=== PATIENT | female | born 1940 | race Caucasian/White ===

== ENCOUNTER → 2017-10-03 18:42 | Outpatient (CLI) | payer MEDICARE ==
[~2017-10-03 18:42] MED LIST: ACTONEL150 MG PO; ASCORBIC ACID500 MG PO; BAYER CHEWABLE81 MG PO; CALTRATE 600 M600 M1 PO; DESERYL100 MG PO; ESTROGEL50 GM TP; GABAPENTIN100 MG PO; HYDROCODONE-APA1 TAB PO; LEVOXYL50 MCG PO; MECLIZINE HCL25 MG PO; MELATONIN10 M1 PO; MINERAL OIL25 ML PO; NEXIUM40 MG PO; PROMETRIUM200 MG PO; PROSCAR5 MG PO; VITAMIN D5000 UNIT PO; WELLBUTRIN XL150 M1 PO; ZANAFLEX4 MG PO; ZOLOFT100 MG PO
[2017-10-03 20:55] LABS: CHOL - HDL RATIO 2.2 ratio (2.3-4.1); LDL-HDL RATIO 1.2 ratio (1.5-3.5)
[2017-10-19 09:09] VITALS: BMI 18.9
== END | disposition home or self-care (01) ==
LOC: D.LABREF 18:42
PROVIDERS: Internal Medicine Cardiovascular Disease
DX: I10 Essential (primary) hypertension (principal)

== ENCOUNTER → 2017-10-17 12:18 | Outpatient (CLI) | payer MEDICARE, OTHER ==
--- NOTE | ~2017-10-17 | EC ---
PATIENT:MASHA HARMAN DATE OF SERVICE: 10/17/17 SEX: F MEDICAL RECORD: [id number] DATE OF : 40 LOCATION:[facility] AGE OF PATIENT: 77 ADMISSION DATE: 10/17/17 REFERRING PHYSICIAN: INTERPRETING PHYSICIAN: PAM MOHR MD ECHOCARDIOGRAM REPORT ECHO CHARGES 4 ECHO COMPLETE Date: 10/17 CLINICAL DIAGNOSIS: CP/MVP ECHOCARDIOGRAPHIC MEASUREMENTS (adult normal given) AC root (d.<3.7cm) 2.9 cm LV Septum d (<1.2 cm> 0.9 cm Valve Excursion 1.8 cm LV Septum (systole) 1.5 cm Left Atria (s.<4.0cm> 2.6 cm LVPW d(<1.2cm) 1.1 cm RV (d.<2.3cm) 2.2 cm LVPW (sytole) 1.6 cm LV diastole(<5.6CM) 4.5 cm MV E-F(>70mm/sec) cm LV systole 2.9 cm LVOT Diameter 1.7 cm MV exc.(>10mm) cm Est.ejection fraction (50-75%) % DOPPLER: LVIT cm/sec A 38.0 cm/sec E 47.0 cm/sec LA cm/sec RVSP 38.0 mmHg LVOT 80.0 cm/sec AOP1/2T m/s Asc. Ao 100 cm/sec RVOT 63.0 cm/sec RA cm/sec PA 71.0 cm/sec AV Gradient Peak 4.0 mmHg AV Mean 1.8 mmHg AV Area 1.8 cm MV Gradient Peak 2.8 mmHg MV Mean 0.98 mmHg MV Area cm COMMENTS: Veneer Stapler: 1 ALON SPA[employer] Architect: Katie Mohr TAPE# PACS Pericardial Effusion N DATE OF SERVICE: PROCEDURE: Echocardiogram. FINDINGS: 1. Left ventricle has evidence of mild left ventricular hypertrophy. Inflow characteristics are otherwise normal. Ejection fraction is 50% to 55%. 2. The left atrium is normal. 3. The aortic valve is normal. 4. The mitral valve has mild mitral valve regurgitation. ECHOCARDIOGRAM REPORT [id number] MASHA HARMAN 5. The tricuspid valve has moderate tricuspid regurgitation, RVSP of 38 mmHg. 6. The right ventricle is normal. 7. The right atrium is normal. 8. Pulmonic valve has trace pulmonic insufficiency. CONCLUSIONS: The patient has evidence of left ventricular hypertrophy, otherwise normal echocardiogram for stated age with the exception of mild elevation of the right ventricular systolic pressures. TRANSINT:[id number] Voice Confirmation ID: [id number] DOCUMENT ID: [id number] PAM MOHR MD at 0737 CC: [id number] DICTATION DATE: 10/19/17924 MANAGEMENT INFORMATION SYSTEMS DIRECTOR: 10/19/17 1124 [facility] CLI 10/17/17 [id number] [place] [address]
[2017-10-19 09:09] VITALS: BMI 18.9
== END | disposition home or self-care (01) ==
LOC: D.ECHO 12:18
DX: R07.9 Chest pain, unspecified (principal); I34.1 Nonrheumatic mitral (valve) prolapse; I70.213 Atherosclerosis of native arteries of extremities with intermittent claudication, bilateral legs

== ENCOUNTER 2017-10-19 08:26 | Outpatient (CLI) | payer MEDICARE, OTHER ==
[~2017-10-19] VITALS: Ht 162.6 cm; Wt 50.0 kg
--- NOTE | ~2017-10-19 | HEMODYNAMI ---
PATIENT:MASHA HARMAN MEDICAL RECORD: [id number] : 40 LOCATION:[facility] ADMISSION DATE: 10/19/17 Generatedon:10/19/201710:25 Patient name: MASHA HARMAN Patient #: [id number] SSN: : 1940 Date of study: 10/19/2017 Page: Of Hemodynamic Procedure Report Patient Data Patient Demographics Procedure consent was obtained First Name: MASHA Gender: Female Last Name: GHAZAL : 1940 Middle Initial: E Age: 77 year(s) Patient #: [id number] Race: Unknown Additional ID: [id number] Contact details Address: [address] [place] [address] State: [place] City: [place] Zip code: [address] Past Medical History Allergies: No known allergies Admission Admission Data Admission Date: 10/19/2017 Admission Time: 8:26 Admit Source: Other Lab Results Lab Result Date: 10/19/2017 Lab Result Time: 0:00 CBC Name Units Result Min Max Hematocrit % 32.4 *-(----)-- 42 54 Hemoglobin g/dl 11 *-(----)-- 13.5 17.5 Procedure Procedure Types Cath Procedure Diagnostic Procedure LHC LHC w/Coronaries Peripheral Cath Diagnostic Procedure Cath Peripheral Qtybi-Qewrpwy-Qzv-Off Abd/Extremity Renal Bilat Renal Arteriogram Procedure Description Procedure Date Procedure Date: 10/19/2017 Procedure Start Time: 10:13 Procedure End Time: 10:25 Procedure Staff Name Function Shaan Ponce MD Performing Physician Judd Byers RT Monitor Prashanth Georges RT Scrub Wilfredo Nolan RN Nurse Procedure Data Cath Procedure Fluoroscopy Diagnostic fluoroscopy Total fluoroscopy Time: 1.7 time: 1.7 min min Diagnostic fluoroscopy Total fluoroscopy dose: 201 dose: 201 mGy mGy Contrast Material Contrast Material Type Amount (ml) Isovue 300 72 Entry Location Entry Primary Successful Side Size Upsize Upsize Entry Closure Succes sful Closure Location (Fr) 1 (Fr) 2 (Fr) Remarks Device Remarks Femoral Right 5 Fr Exoseal artery Estimated blood loss: 5 ml Diagnostic catheters Device Type Used For End Catheter Placement MULTIPACK JL 4.0 5Fr Procedure catheter MULTIPACK 3DRC 5Fr Procedure catheter MULTIPACK Pigtail 5 Fr Procedure catheter Procedure Complications No complications Procedure Medications Medication Administration Route Dosage 0.9% NaCl I.V. 100 ml/hr Oxygen etCO2 Nasal cannula 2 l/min Heparin Flush Bag added to field 2 bags (1000units/500ml NS) Lidocaine 2% added to field 20 Versed I.V. 2 mg Fentanyl I.V. 50 mcg Hemodynamics Rest HGB: 11 (g/dl) Heart Rate: 79 (bpm) Pressure Samples Time Site Value (mmHg) Purpose Heart Use Rate(bpm) 10:20 LV 145/-11,17 EDP 81 Gradients Valve Time Site Site Mean SEP/DFP Peak To Heart Use 1 2 (mmHg) (sec/min) Peak Rate (mmHg) (bpm) Aortic 10:21 LV AO 83 Snapshots Pre Cath Intra NCS Post Cath Vital Signs Time Heart Resp SPO2 etCO2 NIBP (mmHg) Rhythm Pain Sedation Rate (ipm) (%) (mmHg) Status Level (bpm) 10:10:41 78 15 100 21 127/75(101) NSR 0 (11) 10(A) , No pain 10:15:24 79 17 97 0 118/69(93) NSR 0 (11) 9(A) , No pain 10:19:56 82 12 99 0 130/84(107) NSR 0 (11) 9(A) , No pain 10:24:30 81 12 98 0 136/81(112) NSR 0 (11) 9(A) , No pain Medications Time Medication Route Dose Verified Delivered Reason Notes Eff ectiveness by by 10:00:08 0.9% NaCl I.V. 100 Wilfredo Wilfredo Per ml/hr Ovidio Nolan physician RN RN 10:00:20 Oxygen etCO2 2 Wilfredo Wilfredo Per Nasal l/min Ovidio Nolan physician cannula RN RN 10:00:33 Heparin Flush added 2 Wilfredo Wilfredo used for Bag to bags Ovidio Nolan procedure (1000units/500ml field RN RN NS) 10:00:44 Lidocaine 2% added 20ml Wilfredo Wilfredo for local to vial Ovidio Nolan anesthetic field RN RN 10:08:59 Versed I.V. 2 mg Wilfredo Villalobos for Lorigan Cristyigan sedation RN RN 10:09:09 Fentanyl I.V. 50 Wilfredo Wilfredo for mcg Lorigan Lormark sedation RN ed educational aide Log Time Note 9:37:20 Informed consent obtained and on chart 9:37:24 Admit Source: Other 9:37:47 Diagnostic Cath status Elective 9:37:49 Prashanth José Manuel RT(R) sent for patient. Start room use. 9:37:50 Time tracking: Regular hours (M-F 7:00 - 5:00) 9:37:54 Plan of Care:Hemodynamics will remain stable., Cardiac rhythm will remain stable., Comfort level will be maintained., Respiratory function will remain adequate., Patient/ family verbilizes understanding of procedure., Procedure tolerated without complication., Recovers from procedure without complications.. 9:38:07 H&P Date Dictated: 10/03/2017 Within 30 days and on chart., H&P Addendum completed by physician on day of procedure. (MUST COMPLETE FOR ALL OUTPATIENTS). 9:41:57 Lab Result : Hemoglobin 11 g/dl 9:41:58 Lab Result : Hematocrit 32.4 % 9:48:31 Patient received from Pre/Post Procedure Room to CCL 1 Alert and oriented. Tansferred to table in Supine position. 9:48:32 Warm blankets applied, and james hugger turned on for patient comfort. 9:48:32 Correct patient and procedure confirmed by team. 9:48:33 ECG and BP/O2 sat monitors applied to patient. 9:48:34 Pre-procedure instructions explained to patient. 9:48:34 Pre-op teaching completed and patient verbalized understanding. 9:48:35 Family in waiting room. 9:48:36 Patient NPO since Midnight. 9:57:57 Vital chart was started 10:00:08 0.9% NaCl 100 ml/hr I.V. was administered by Wilfredo Nolan RN; Per physician; 10:00:20 Oxygen 2 l/min etCO2 Nasal cannula was administered by Wilfredo Nolan RN; Per physician; 10:00:33 Heparin Flush Bag (1000units/500ml NS) 2 bags added to field was administered by Wilfredo Nolan RN; used for procedure; 10:00:44 Lidocaine 2% 20ml vial added to field was administered by Wilfredo Nolan RN; for local anesthetic; 10:04:47 Baseline sample Acquired. 10:04:53 Rhythm: sinus rhythm 10:05:28 Patient allergic to No known allergies 10:05:30 Is the patient allergic to Iodine/contrast media? No. 10:05:31 Is patient on blood thinner?Yes 10:05:34 ACC The patient was administered the following blood thiners within the last 24 hours: ACCPlavix 10:06:13 Patient diabetic? No. 10:06:15 Previous problem with sedation/anesthesia? No ? 10:06:17 Snore? No 10:06:17 Sleep apnea? No 10:06:18 Deviated septum? No 10:06:19 Opens mouth fully? Yes 10:06:19 Sticks out tongue? Yes 10:06:21 Airway obstruction? No ? 10:06:22 Dentures? No ? 10:07:36 Pre procedure: right dorsailis pedis pulse 2+ Normal; easily identifiable; not easily obliterated 10:07:38 Pre procedure: left dorsailis pedis pulse 2+ Normal; easily identifiable; not easily obliterated 10:07:44 Patient pain scale 0/10 ?. 10:07:57 IV patent on arrival in left forearm with 0.9% NaCl at O. 10:07:59 Lab results completed and on chart. 10:08:01 Bilateral groins area was prepped with chlora-prep and draped in sterile fashion 10:08:02 Alarms reviewed by R. N. 10:08:02 Sharps counted by scrub and verified by R.N. 10:08:04 Use device set Femoral Dx 10:08:05 ACIST Syringe (67792) opened to sterile field. 10:08:05 Bag Decanter (2002S) opened to sterile field. 10:08:08 Medline Cath Pack ([id number]) opened to sterile field. 10:08:09 ACIST Manifold (89144) opened to sterile field. 10:08:10 ACIST Hand Control (76593) opened to sterile field. 10:08:11 Tegaderm 4 x 4 (1626W) opened to sterile field. 10:08:14 DIAGNOSTIC Multipack 5Fr catheter set ([id number]) opened to sterile field. 10:08:16 SHEATH Prelude 5Fr 0.035 (LTE-6L-85-035) opened to sterile field. 10:08:17 MICROPUNCTURE 4FR Cook (H03278) opened to sterile field. 10:08:18 DIAGNOSTIC WIRE .035 260cm J wire (821246) opened to sterile field. 10::29 Physician arrived 10:: --------ALL STOP TIME OUT------ 10:08:30 Final Timeout: patient, procedure, and site verified with staff and physician. All members of the team are in agreement. 10:08:32 Bilateral groins site verified by team. 10:08:34 Physical assessment completed. ASA score P 2 - A patient with mild systemic disease as per Shaan Ponce MD. 10:08:37 Sedation plan: IV Moderate Sedation Medication:Versed, Fentanyl 10::59 Versed 2 mg I.V. was administered by Wilfredo Nolan RN; for sedation; 10::09 Fentanyl 50 mcg I.V. was administered by Wilfredo Nolan RN; for sedation; 10::39 Vital chart was stopped 10:09:48 Vital chart was started 10:12:30 Zero performed for pressure channel P1 10:13:21 Procedure started. 10:13:21 Full Disclosure recording started 10:13:25 Local anesthetic to right femoral artery with Lidocaine 2% by Shaan Ponce MD.INITIAL ACCESS ONLY 10:13:25 Access obtained with 4Fr micropunture. 10:13:31 A 5 Fr sheath was inserted into the Right Femoral artery 10:14:53 A MULTIPACK JL 4.0 5Fr catheter was advanced over the wire and used for Procedure. 10:14:58 LCA angiography performed. 10:15:16 Catheter exchanged over wire. 10:15:21 A MULTIPACK 3DRC 5Fr catheter was advanced over the wire and used for Procedure. 10:16:42 RCA angiography performed. 10:17:15 Left renal angiography performed. 10:17:16 Right renal angiography performed. 10:18:00 Abdominal angiogram w/ runoff was performed. 10:18:11 Left leg runoff performed. 10:18:59 Right leg runoff performed. 10:19:24 Catheter exchanged over wire. 10:19:28 A MULTIPACK Pigtail 5 Fr catheter was advanced over the wire and used for Procedure. 10:20:04 EXOSEAL 5Fr (EX500) opened to sterile field. 10:20:58 LV hemodynamics recorded. 10:21:01 Injector settings: Ml/sec: 12, Volume: 8, 10:21:02 LV gram done using LARIOS 10:21:32 EF : 65 % 10:21:35 Catheter removed. 10:22:03 Sheath removed intact; hemostasis achieved with Exoseal to the Right Femoral artery. 10:22:05 Procedure ended.(Physican Out) 10:22:12 Fluoroscopy time 01.70 minutes. 10:22:17 Fluoroscopy dose: 201 mGy 10:22:17 Flurop Dose total: 201 10:22:20 Contrast amount:Isovue 300 72ml. 10:22:22 Sharps counted by scrub and verified by R.N. 10:22:23 Insertion/operative site no bleeding no hematoma. 10:22:25 Post-op/insertion site Right Femoral artery dressed using a 4 x 4 and Tegaderm. 10:22:28 Post right femoral artery:stable, soft, clean and dry 10::29 Post Procedure Pulses reassessed and unchanged 10::32 Post-procedure physical assessment completed. ASA score P 2 - A patient with mild systemic disease as per Shaan Ponce MD. 10:22:33 Post procedure rhythm: unchanged. 10:22:35 Estimated blood loss: 5 ml 10:22:40 Post procedure instruction explained to patient.Patient verbalizes understanding. 10:22:41 Patient needs reinforcement of post procedure teaching. 10:23:31 Procedure type changed to Cath procedure, Diagnostic procedure, LHC, LHC w/Coronaries, Peripheral Cath Diagnostic Procedure, Cath Peripheral, Tjooj-Ktphnxq-Gle-Off, Abd/Extremity, Renal, Bilat Renal Arteriogram 10:25:11 Procedure and supply charges have been captured, reviewed, submitted and are correct. 10:25:13 Procedure Complication : No complications 10:25:22 See physician's report for complete and final results. 10:25:24 Report given to Pre/Post Procedure Room. 10:25:26 Patient transfered to Pre/Post Procedure Room with Stretcher. 10:25:29 Procedure ended. 10:25:29 Full Disclosure recording stopped 10:25:32 End room use (Document Last) 10:25:50 Vital chart was stopped Device Usage Item Name Manufacture Quantity Catalog Number Hospital Part Current M inimal Lot# / Charge Number Stock Stock Serial# Code ACIST Syringe Acist 1 35672 381959 432848 284788 2 0 (82844) [employer] Bag Decanter Microtek 1 2001S 417682 18886 343064 5 (2001S) Medical Inc. Medline Cath Cardinal 1 [id number] 486828 07231 714333 5 Pack Health ([id number]) ACIST Manifold Acist 1 21364 021563 930923 797087 5 (40934) Medical [employer] Inc ACIST Hand Acist 1 96832 379556 481739 905489 5 Control (64957) [employer] Inc Tegaderm 4 x 4 3M 1 1626W 936799 418248 354898 5 (1626W) DIAGNOSTIC Cardinal 1 [id number] 298619 29423 329425 3 0 Multipack 5Fr Health catheter set ([id number]) SHEATH Prelude Merit 1 [id number]-[id number]-[id number] 451289 902490 865270 5 5Fr 0.035 Medical ([id number]-8S-60-035) MICROPUNCTURE Cook Medical 1 [id number] 337545 927307 052545 5 4FR Cook ([id number]) DIAGNOSTIC WIRE St Jesse 1 235897 889439 370680 794304 3 0 .035 260cm J wire (219404) MULTIPACK JL Cardinal 1 614182 5 4.0 5Fr Health catheter MULTIPACK 3DRC Cardinal 1 053231 5 5Fr catheter Health MULTIPACK Cardinal 1 537698 5 Pigtail 5 Fr Health catheter EXOSEAL 5Fr Cardinal 1 EX500 121141 301285 721494 1 0 (EX500) Health Signature Audit [place] Stage Time Signature Unsigned Intra-Procedure 10/19/2017 Judd Byers 10:25:47 AM RT(R) Signatures Monitor : Judd Byers RT Signature : Date : Time : [address] [place] [address]
--- NOTE | ~2017-10-19 | OP ---
PATIENT NAME: MASHA HARMAN MEDICAL RECORD: [id number] :40 LOCATION:[facility] ADMISSION DATE: SURGEON: PAM MOHR MD DATE OF OPERATION: 10/19/2017 PROCEDURE: Left heart catheterization, selective bilateral renal angiography, AFR, selective second order left common iliac angiography with runoff, and selective ipsilateral right common femoral artery angiography with runoff. DESCRIPTION OF PROCEDURE: The patient was brought to the cardiac catheterization lab in stable condition. Both groins were sterilely prepped and draped. The patient had a 5-[place]izen [place] sheath placed in right common femoral artery using modified Seldinger technique in a retrograde fashion. We were then able to selectively engage the left coronary artery, the right coronary artery, the LV cavity, the left renal artery, the right renal artery, the left common iliac artery, the right common femoral artery, the distal abdominal femoral artery, and the distal abdominal aortic artery and for complete left heart catheterization and AFR. FINDINGS: 1. Left main is normal. 2. The LAD is normal. 3. The circumflex is normal. 4. The RCA is normal and dominant. 5. The left renal artery is large and normal. 6. The right renal artery is large and normal. 7. The abdominal aorta is normal. 8. The bilateral iliac system is free of significant disease. 9. The bilateral SFAs free of significant disease and no hemodynamically significant stenosis. 10. The bilateral profunda is free of significant disease and there is 3-vessel pulsatile flow into the lower extremities and into the leg. 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 RECOMMENDATIONS: Look for other etiologies of the patient's claudication and chest pain syndrome. TRANSINT:[id number] Voice Confirmation ID: [id number] DOCUMENT ID: [id number] PAM MOHR MD at 1127 CC: [id number] DICTATION DATE: 10/19/17 1028 WRAP CHECKER: 10/19/17 1145 [facility] CLI 10/19/17 [id number] [place] [address]
[2017-10-19] MEDS ORDERED: WELLBUTRIN XL150 M1 PO (08:46)
[2017-10-19] MEDS ORDERED: ACTONEL150 MG PO (08:46)
[2017-10-19] MEDS ORDERED: BAYER CHEWABLE81 MG PO (08:46)
[2017-10-19] MEDS ORDERED: ESTROGEL50 GM TP (08:47)
[2017-10-19] MEDS ORDERED: CALTRATE 600 M600 M1 PO (08:47)
[2017-10-19] MEDS ORDERED: PROSCAR5 MG PO (08:48)
[2017-10-19] MEDS ORDERED: GABAPENTIN100 MG PO (08:48)
[2017-10-19] MEDS ORDERED: LEVOXYL50 MCG PO (08:49)
[2017-10-19] MEDS ORDERED: MELATONIN10 M1 PO (08:49)
[2017-10-19] MEDS ORDERED: MECLIZINE HCL25 MG PO (08:49)
[2017-10-19] MEDS ORDERED: MINERAL OIL25 ML PO (08:50)
[2017-10-19] MEDS ORDERED: NEXIUM40 MG PO (08:50)
[2017-10-19] MEDS ORDERED: HYDROCODONE-APA1 TAB PO (08:50)
[2017-10-19] MEDS ORDERED: DESERYL100 MG PO (08:51)
[2017-10-19] MEDS ORDERED: PROMETRIUM200 MG PO (08:51)
[2017-10-19] MEDS ORDERED: ZOLOFT100 MG PO (08:51)
[2017-10-19] MEDS ORDERED: ZANAFLEX4 MG PO (08:53)
[2017-10-19] MEDS ORDERED: VITAMIN D5000 UNIT PO (08:53)
[2017-10-19] MEDS ORDERED: ASCORBIC ACID500 MG PO (08:53)
[2017-10-19 09:09] VITALS: BP 123/80; Ht 162.6 cm; Wt 50.0 kg
[2017-10-19 09:18] LABS: BASOPHILS 0.4 % (0-2); EOSINOPHILS 1.6 % (0-7); HEMATOCRIT 32.4 % (36.0-48.0); IMMATURE GRANULOCYTES 0.1 % (0-5); LYMPHOCYTES 16.7 % (15-50); MCH 32.2 pg (26.0-34.0); MCV 94.7 fL (80.0-100.0); MEAN PLATELET VOLUME 8.7 fL (7.4-10.4); NEUTROPHILS 69.2 % (40-80); PLATELET COUNT 206 10x3/uL (130-400); RBC 3.42 10x6/uL (4.00-5.40); RDW 13.3 % (11.5-14.5); WBC 7.7 10x3/uL (4.8-10.8)
[2017-10-19 09:38] LABS: CALC OSMOLALITY 285 mosm/kg (275-300); CALCIUM 8.6 mg/dL (8.5-10.1); CARBON DIOXIDE 30.4 mmol/L (21.0-32.0); CHLORIDE - SERUM 104 mmol/L (98-107); CREATININE - SERUM 0.7 mg/dL (0.6-1.3); GLUCOSE 97 mg/dL (74-106); POTASSIUM - SERUM 4.3 mmol/L (3.5-5.1); SODIUM 141 mmol/L (136-145); UREA NITROGEN 27 mg/dL (7-18); eGFR NON AFRICAN AMERICAN 86 mL/min (90-120)
== END 2017-10-19 12:55 | disposition home or self-care (01) ==
LOC: D.CATH 08:26
PROVIDERS: Internal Medicine Cardiovascular Disease
DX: R07.9 Chest pain, unspecified (principal); I73.9 Peripheral vascular disease, unspecified

== ENCOUNTER → 2018-04-19 08:00 | Outpatient (CLI) | payer MEDICARE, OTHER ==
[2017-10-19 09:09] VITALS: BMI 18.9
== END | disposition home or self-care (01) ==
LOC: D.MAMMO 08:00
DX: Z12.31 Encounter for screening mammogram for malignant neoplasm of breast (principal)

== ENCOUNTER → 2018-07-18 16:57 | Outpatient (CLI) | payer MEDICARE, OTHER ==
[2017-10-19 09:09] VITALS: BMI 18.9
== END | disposition home or self-care (01) ==
LOC: D.MAMMO 13:00
PROVIDERS: ATTEND Family Medicine
DX: R92.1 Mammographic calcification found on diagnostic imaging of breast (principal)

== ENCOUNTER 2018-09-21 19:00 | Outpatient (CLI) | payer MEDICARE, OTHER ==
[2017-10-19 09:09] VITALS: BMI 18.9
== END 2018-09-21 23:59 | disposition home or self-care (01) ==
LOC: D.MAMMO 19:00
PROVIDERS: ATTEND Family Medicine
DX: R92.8 Other abnormal and inconclusive findings on diagnostic imaging of breast (principal)

== ENCOUNTER 2018-10-19 05:35 | Day surgery (SDC) | payer MEDICARE, OTHER ==
[2018-10-17 11:18] LABS: ANION GAP 13.2 mmol/L (8-16); CALCIUM 8.7 mg/dL (8.5-10.1); CARBON DIOXIDE 27.6 mmol/L (21.0-32.0); POTASSIUM - SERUM 4.8 mmol/L (3.5-5.1)
[2018-10-17 11:26] LABS: BASOPHILS 0.4 % (0-2); EOSINOPHILS 1.7 % (0-7); HEMATOCRIT 33.8 % (36.0-48.0); HEMOGLOBIN 11.6 g/dL (12-16); IMMATURE GRANULOCYTES 0.2 % (0-5); LYMPHOCYTES 33.9 % (15-50); MCH 32.5 pg (26.0-34.0); MCHC 34.3 g/dL (31.0-37.0); MCV 94.7 fL (80.0-100.0); MEAN PLATELET VOLUME 8.7 fL (7.4-10.4); MONOCYTES 12.9 % (2-11); NEUTROPHILS 50.9 % (40-80); RBC 3.57 10x6/uL (4.00-5.40); WBC 5.2 10x3/uL (4.8-10.8)
[2018-10-17 11:27] LABS: PLATELET COUNT 253 10x3/uL (130-400)
[~2018-10-19] VITALS: Ht 162.6 cm; Wt 54.9 kg
--- NOTE | ~2018-10-19 | OP ---
PATIENT NAME: MASHA HARMAN MEDICAL RECORD: [id number] :40 [facility]ATION:[facility] ADMISSION DATE: SURGEON: JESS MATHIS MD DATE OF OPERATION: 10/19/2018 PREOPERATIVE DIAGNOSIS: Right breast microcalcifications. POSTOPERATIVE DIAGNOSIS: Right breast microcalcifications. PROCEDURE: Needle-localized right breast lumpectomy. SURGEON: Jess Mathis MD REPORT OF PROCEDURE: Preoperatively, the patient underwent needle localization and was taken to the operating room, where her breast was prepped and draped in sterile fashion. A skin incision was made on the right superolateral chest and the wire was followed down through the subcutaneous and breast tissue until we took out a large core of tissue including the entire wire. This was sent off to radiology and the wire was noted to be intact with the microcalcifications being present within the specimen. The specimen had been marked appropriately to be sent to pathology. We inspected the wound bed and any bleeding was treated with electrocautery. The wound was then irrigated out thoroughly with sterile water. We reapproximated the subcutaneous tissues with interrupted 3-0 Vicryl and the skin was closed with running subcutaneous 5-0 Monocryl. COMPLICATIONS: None. CONDITION: Stable. ANESTHESIA: General endotracheal. BLOOD LOSS: Minimal. TRANSINT:[id number] Voice Confirmation ID: [id number] DOCUMENT ID: [id number] JESS MATHIS MD CC: [id number] DICTATION DATE: 10/24/18 151 LODGE OFFICER: 10/24/18 1821 [facility] 10/19/18 [facility] [address] [place] [address]
[2018-10-19 06:30] VITALS: BP 129/72; Ht 162.6 cm; Wt 54.9 kg
[2018-10-19] MEDS ORDERED: ROXICODONE15 MG PO (13:33)
--- NOTE | 2018-10-19 13:57 | NUR ---
VIODED 200CC OF CLEAR YELLOW URINE IN BEDPAN @1355
--- NOTE | 2018-10-19 16:38 | NUR ---
LEFT WRIST PIV DC'D WITH TIP INTACT. PATIENT DRESSING IN PERSONAL CLOTHING 1649 DISCHARGED HOME VIA WHEELCHAIR TO PRIVATE VEHICLE
== END 2018-10-19 16:50 | disposition home or self-care (01) ==
LOC: D.OPS 05:35 → D.PAN 09:00 → D.OPS 10:45
PROVIDERS: ATTEND Surgery
DX: R92.0 Mammographic microcalcification found on diagnostic imaging of breast (principal); Z01.812 Encounter for preprocedural laboratory examination

== ENCOUNTER → 2018-11-03 11:16 | Outpatient (CLI) | payer MEDICARE, OTHER ==
[2018-10-19 06:30] VITALS: BMI 20.6
[~2018-11-03 11:16] MED LIST changes: +ROXICODONE15 MG PO
== END | disposition home or self-care (01) ==
LOC: D.HCCARDIO 11:00
PROVIDERS: ATTEND Internal Medicine Cardiovascular Disease
DX: I10 Essential (primary) hypertension (principal)